=== PATIENT | female | born 1955 | race Caucasian/White ===

== ENCOUNTER 2018-09-13 16:24 | Emergency (ER) | payer SELFPAY ==
[~2018-09-13] VITALS: Ht 162.6 cm; Wt 61.9 kg
[2018-09-13 16:27] VITALS: Ht 162.6 cm; Wt 61.9 kg
[2018-09-13] MEDS ORDERED: KETOROLAC 30 MG INJ IM STA (17:39)
[2018-09-13] MEDS ORDERED: traMADol 50 MG TAB PO ONE (18:00)
[2018-09-13] MEDS ORDERED: IBUP-1542 PO (18:48)
[2018-09-13] MEDS ORDERED: TRAM50TA2 PO (18:48)
[2018-09-13] MEDS ORDERED: ONDA4TAB14 PO (18:49)
[2018-09-13 19:12] VITALS: BP 122/72; PULSE 61; RESP 16
--- NOTE | 2018-09-13 21:13 | ERD ---
ER Documentation Chief Complaint Chief Complaint right wrist, left elbow, bilateral leg pain pain s/p trip & fall HPI History of Present Illness: 63-year-old female who with a history of thyroid problems coming in today with complaint of mechanical fall that occurred ON 09/06/2018. Patient being accompanied by her French/R[place]an speaking son. Reports that patient was in [place] and had a mechanical fall in a store in which she had a head injury and patient lost consciousness for approximately 1 minute OR LESS. Associated symptoms include right wrist pain. Associated symptoms includes episodes of dizziness every day in which nausea also occurs during this episode;; patient reports she feels like the room is spinning At home pharmacological/nonpharmacological treatment for symptoms: Advil daily for pain Denies social concerns; Denies recent foreign travel ROS All systems reviewed and are negative except as per history of present illness. Medications Home Meds Active Scripts Ondansetron (Ondansetron Odt) 4 Mg Tab.rapdis, 4 MG PO Q6H PRN for NAUSEA AND/OR VOMITING, #10 TAB Prov:BERNIE COTA NP 09/13/18 Ibuprofen* (Motrin*) 600 Mg Tab, 600 MG PO Q6H PRN for MILD PAIN/SWELLING/INFLAMMATIO, #30 TAB Prov:BERNIE COTA V PROPERTY MASTER 09/13/18 Tramadol HCl (Tramadol HCl) 50 Mg Tablet, 50 MG PO Q6, #20 TAB Prov:BERNIE COTA NP 09/13/18 Allergies Allergies: Coded Allergies: No Known Allergy (Unverified , 09/13/18) PMhx/Soc Medical and Surgical Hx: pt denies Surgical Hx History of Surgery: No Hx Miscellaneous Medical Probl: Yes (Hyperlipidemia) Hx Alcohol Use: No Hx Substance Use: No Hx Tobacco Use: No Smoking Status: Never smoker FmHx Family History: coronary disease Physical Exam Vitals Vital Signs Date Temp Pulse Resp B/P (MAP) Pulse Ox O2 O2 Flow FiO2 Time Delivery Rate 09/13/18 97.8 61 16 122/72 100 Room Air 19:12 (89) 09/13/18 98.6 65 18 132/62 100 16:27 (85) Physical Exam Const: No acute distress, afebrile Head: Atraumatic Eyes: Normal Conjunctiva ENT: Normal External Ears, Nose and Mouth. Neck: Full range of motion. No meningismus. Resp: Clear to auscultation bilaterally Cardio: Regular rate and rhythm, no murmurs Abd: Soft, non tender, non distended. No guarding, no masses, no rigidity Skin: No petechiae or rashes; bruising noted to right forearm, tenderness to palpation Back: No midline or flank tenderness Ext: No cyanosis; RLE: Tenderness to palpation to right wrist, neurovascularly intact, swelling Neur: Awake and alert x3, speaking in clear sentences, no focal deficits or facial asymmetry Psych: Normal Mood and Affect Results 24 hrs Current Medications Medications Dose Sig/Cyndee Start Time Status Last (Trade) Ordered Route PRN Stop Time Admin Dose Reason Admin Tramadol 50 mg ONCE ONCE 09/13/18 DC 09/13/18 HCl PO 18:00 17:45 (Ultram) 09/13/18 18:01 Ketorolac 30 mg ONCE STAT 09/13/18 DC 09/13/18 Tromethamine IM 17:39 17:45 (Toradol) 09/13/18 17:40 Procedures/MDM ED course includes a thorough examination and history. Medications: Ketorolac, tramadol Imaging: CT head, right wrist, right forearm Labs: Low suspicion for life-threatening medical emergency. Suspicion for orthopedic emergency that requires hospitalization or immediate surgical intervention/reduction. Low suspicion for neurovascular compromise patient presenting with constellation of symptoms likely representing pj fracture, concussion secondary to fall as characterized by history, physical exam findings , radiology findings. Imaging results show: IMPRESSION: 1. No acute intracranial hemorrhage, transcortical infarction or mass effect. 2. Mild intracranial atherosclerosis and chronic small vessel ischemic changes. 3. Mild generalized cerebral volume loss. RPTAT: HFN .Katey Rocha MD, Date Time Electronically viewed and signed by .Katey Rocha MD, on 09/13/2018 18:27 IMPRESSION: Colles fracture right wrist .Bhavin Fong MD, MD Date Time Electronically viewed and signed by .Bhavin Fong MD, MD on 09/13/2018 17:34 IMPRESSION: Impacted Colles fracture distal right radius. .Bhavin Fong MD, MD Date Time Electronically viewed and signed by .Bhavin Fong MD, MD on 09/13/2018 17:33 Patient reassessment at 1739: Patient previously medicated for pain. Results of x-rays given. Orders placed for volar splint. Patient reassessment 1900: Results of CT discussed. My splint assessment includes volar splint placed to right wrist by train control electronic technician. Neurovascularly intact, good fit. Patient hemodynamically stable. No respiratory distress, otherwise relatively well appearing and nontoxic. Disposition given. Patient educated on diagnoses, prescriptions, follow-up care, return precautions. Strict return precautions given for worsening condition; questions answered discharge. Disposition for discharge with followup in 2 days with PCP/clinic. Departure Diagnosis: Primary Impression: Fall from slip, trip, or stumble Encounter type: initial encounter Qualified Codes: W01.0XXA - Fall on same level from slipping, tripping and stumbling without subsequent striking against object, initial encounter Additional Impressions: Colles' fracture of right radius Encounter type: initial encounter Fracture type: closed Qualified Codes: S52.531A - Colles' fracture of right radius, initial encounter for closed fracture Concussion Encounter type: initial encounter Loss of consciousness presence/duration: with LOC of 30 min or less Qualified Codes: S06.0X1A - Concussion with loss of consciousness of 30 minutes or less, initial encounter Condition: Stable Patient Instructions: After a Concussion, Colles Fracture, No Reduction Required Referrals: [facility] YOU HAVE RECEIVED A MEDICAL SCREENING EXAM AND THE RESULTS INDICATE THAT YOU DO NOT HAVE A CONDITION THAT REQUIRES URGENT TREATMENT IN THE EMERGENCY DEPARTMENT. FURTHER EVALUATION AND TREATMENT OF YOUR CONDITION CAN WAIT UNTIL YOU ARE SEEN IN YOUR DOCTORS OFFICE WITHIN THE NEXT 1-2 DAYS. IT IS YOUR RESPONSIBILITY TO MAKE AN APPOINTMENT FOR FOLOW-UP CARE. IF YOU HAVE A PRIMARY DOCTOR --you should call your primary doctor and schedule an appointment IF YOU DO NOT HAVE A PRIMARY DOCTOR YOU CAN CALL OUR PHYSICIAN REFERRAL HOTLINE AT IF YOU CAN NOT AFFORD TO SEE A PHYSICIAN YOU CAN CHOSE FROM THE FOLLOWING [facility] [address] [facility] [address] [facility] [address] [facility] [address] [facility] [address] [facility] [address] [facility] [facility] YOU HAVE RECEIVED A MEDICAL SCREENING EXAM AND THE RESULTS INDICATE THAT YOU DO NOT HAVE A CONDITION THAT REQUIRES URGENT TREATMENT IN THE EMERGENCY DEPARTMENT. FURTHER EVALUATION AND TREATMENT OF YOUR CONDITION CAN WAIT UNTIL YOU ARE SEEN IN YOUR DOCTORS OFFICE WITHIN THE NEXT 1-2 DAYS. IT IS YOUR RESPONSIBILITY TO MAKE AN APPOINTMENT FOR FOLOW-UP CARE. IF YOU HAVE A PRIMARY DOCTOR --you should call your primary doctor and schedule and appointment IF YOU DO NOT HAVE A PRIMARY DOCTOR YOU CAN CALL OUR PHYSICIAN REFERRAL HOTLINE AT . IF YOU CAN NOT AFFORD TO SEE A PHYSICIAN YOU CAN CHOSE FROM THE FOLLOWING [facility]: [facility] [address] [place] [address] [facility] [address] [place] [address] [facility] [address] [place] [address] [facility] Hours: Mon-Fri 9:00 AM - 5:00 PM Additional Instructions: Thank you very much for allowing us to participate in your care. Your health and safety is our top priority at [facility]. It is important to read all discharge instructions and education provided in your discharge packet. *It is very important to call your primary care doctors that you can get a referral to an orthopedic surgeon. You will need follow-up care and possible surgery.* Call your primary care doctor TOMORROW for an appointment during the next 2-4 days and bring all the information and medications prescribed. -Ibuprofen is a medication that will help with pain/inflammation. At the dosage of 600 to 800 mg, this will help with inflammation/swelling. Take this medication as prescribed. -Tramadol is an opiate pain medication; take this medication as needed for moderate to severe pain. No operating of heavy machinery while taking this medication. It may cause drowsiness. -Zofran is a medication for nausea/vomitting; take this medication as needed for nausea/vomiting/decreased appetite. Have prescriptions filled and follow precisely the directions on the label. If the symptoms get worse and your provider is unavailable, return to the Emergency Department immediately. BERNIE COTA NP Sep 13, 2018 21:12
== END 2018-09-13 19:13 | disposition home or self-care (01) ==
LOC: FTE 16:24
DX: S06.0X1A Concussion with loss of consciousness of 30 minutes or less, initial encounter (principal); S52.531A Colles' fracture of right radius, initial encounter for closed fracture; W01.0XXA Fall on same level from slipping, tripping and stumbling without subsequent striking against object, initial encounter; Y92.9 Unspecified place or not applicable
CPT/HCPCS: 29125; 70450; 73090; 73110; 96372; 99285; J1885